=== PATIENT | female | born 1980 | race Caucasian/White ===

== ENCOUNTER 2025-05-13 12:02 | Emergency (ER) | payer SELFPAY ==
--- OUTSIDE RECORDS SUMMARY | 2025-05-13 12:05 | XMS_ITS | Clinical Summary ---
Author Organization [facility] Address [address] [place] [address] Care Team Providers Care Farm Machinery Mechanic Name Role Phone Hollie More MD Unavailable Soy Regalado MD Primary Care Provider [phone] Allergies Active Allergy Reactions Criticality Noted Date Comments Penicillins Shortness Of Breath,Rash,Hives High 11/01 Medications oxyCODONE-aceta minophen (PERCOCET) 5-325 MG per tabletIndicatio ns:Adenomyosis Take 1-2 tablets by mouth every 4 hours as needed for pain (moderate to severe) 36 tablet 0 12/25/2015 Active oxyCODONE (ROXICODONE) 5 MG tablet Take 1 tablet (5 mg) by mouth every 6 hours as needed for pain 6 tablet 05/15/2019 Active Active Problems Problem Noted Date Diagnosed Date Adenomyosis 12/25/2015 Family History Medical History Relation Comments Hypertension Father Heart Disease Maternal Grandfather Heart Disease Maternal Grandmother Osteoporosis Maternal Grandmother Breast Cancer Mother Hyperlipidemia Mother Ovarian Cancer Mother Heart Disease Paternal Grandfather Colon Cancer Paternal Grandmother Relation Status Comments Father Maternal Grandfather Maternal Grandmother Mother Paternal Grandfather Paternal Grandmother Social History Tobacco Use Types Packs/Day Years Used Date Smoking Tobacco: Some Days Cigarettes 0.5 10 Smokeless Tobacco: Never Comments:.5 PPD IN THE PAST, NOW OCCAS SMOKER Alcohol Use Standard Drinks/Week Comments No 0 (1 standard drink = 0.6 oz pur e alcohol) Adolescent Education Answer Date Record ed Getting School Help Needed Not on file 04/20 Comments No Sex and Gender Information Value Date Recorded Sex Assigned at Not on file Legal Sex Female 5:11 AM ALARM MECHANISM ADJUSTER Gender Identity Not on file Sexual Orientation Not on file Last Filed Vital Signs Vital Sign Reading Time Taken Comments Blood Pressure 129/95 11/22/2022 5:40 PM CDT Pulse 87 11/22/2022 5:40 PM CDT Temperature 36.7 C (98 F) 11/22/2022 5:40 PM CDT Respiratory Rate 18 11/22/2022 5:40 PM CDT Oxygen Saturation 97% 11/22/2022 5:40 PM CDT Inhaled Oxygen Concentration - - Weight 71.2 kg (157 lb) 11/22/2022 5:40 PM CDT Height 170.2 cm (5' 7) 12/25/2015 8:37 AM CDT Body Mass Index 24.59 12/25/2015 8:37 AM CDT Plan of Treatment Health Maintenance Due Date Last Done Comments ADVANCE CARE PLANNING 1981 ANNUAL REVIEW OF HM ORDERS 1981 MAMMO SCREENING 1981 YEARLY PREVENTIVE VISIT 1984 HIV SCREENING 1996 HEPATITIS C SCREENING 1999 HEPATITIS B VACCINE (1 of 3 - 19+ 3-dose series) 2000 PNEUMOCOCCAL VACCINE: PEDIATRICS (0 to 5 YEARS) AND AT-RISK PATIENTS (6 to 49 YEARS) (1 of 2 - PCV) 2000 ZOSTER VACCINE (1 of 2) 2000 DTAP/TDAP/TD VACCINE (1 - Tdap) 2006 PAP 07/04/2015 07/04/2012 COVID-19 VACCINE (3 - Pfizer risk series) 12/06/2020 11/08/2020, 10/18/2020 LIPID 2021 PHQ-2 (once per calendar year) 2024 INFLUENZA VACCINE (#1) 2025 DIABETES SCREENING 11/22/2025 11/22/2022, 0 08/29/2021, 12/26/2015, Additional history exists HPV VACCINE (No Doses Required) Completed MENINGITIS VACCINE Aged Out No longer eligible based on patient's age to complete this topic Procedures Procedure Name Priority Date/Time Associated Diagnosis Comments COMPREHENSIVE METABOLIC PANEL STAT 11/22/2022 6:08 PM CDT ABSTRACT PAP (HIM EXTERNAL RESULT) Routine 07/04/2012 from Last 3 Months or Most Recently Relevant to Health Maintenance Results * (ABNORMAL) Comprehensive metabolic panel (11/22/2022 6:08 PM CDT) Sodium 136 136 - 145 mmol/L 11/22/2022 9:58 PM CDT [facility] Potassium 4.3 3.4 - 5.3 mmol/L 11/22/2022 9:58 PM CDT [facility] Chloride 105 98 - 107 mmol/L 11/22/2022 9:58 PM CDT [facility] Carbon Dioxide (CO2) 21(L) 22 - 29 mmol/L 11/22/2022 9:58 PM CDT [facility] Anion Gap 10 7 - 15 mmol/L 11/22/2022 9:58 PM CDT [facility] Urea Nitrogen 9.7 6.0 - 20.0 mg/dL 11/22/2022 9:58 PM CDT [facility] Creatinine 0.68 0.51 - 0.95 mg/dL 11/22/2022 9:58 PM CDT [facility] Calcium 9.1 8.6 - 10.0 mg/dL 11/22/2022 9:58 PM CDT [facility] Glucose 82 70 - 99 mg/dL 11/22/2022 9:58 PM CDT [facility] Alkaline Phosphatase 62 35 - 104 U/L 11/22/2022 9:58 PM CDT [facility] AST 20 10 - 35 U/L 11/22/2022 9:58 PM CDT [facility] Comment:Specimen is hemolyze d which can falsely elevate AST. Analysis of a non-hemolyzed specimen may result in a lower value. ALT 7(L) 10 - 35 U/L 11/22/2022 9:58 PM CDT [facility] Protein Total 6.6 6.4 - 8.3 g/dL 11/22/2022 9:58 PM CDT [facility] Albumin 4.2 3.5 - 5.2 g/dL 11/22/2022 9:58 PM CDT [facility] Bilirubin Total 0.3 <=1.2 mg/dL 11/22/2022 9:58 PM CDT [facility] GFR Estimate >90 >60 mL/min/1.7 3m2 11/22/2022 9:58 PM CDT [facility] Comment:eGFR calculated 2020 CKD-EPI equation. Blood STRUCTURE OF LEFT UPPER LIMB / Unknown Venipuncture / Unknown 11/22/2022 6:08 PM CDT 11/22/2022 6:21 PM CDT Hayden Flores MD LAB - BLOOD ORDERABLES F inal Result [facility] [address] [facility] (1st floor, no room number) [place] [address], [facility] [phone] * ABSTRACT PAP-NO CHARGE (07/04/2012) 07/04/2012 Narrative EXTERNAL LAB - 07/04/2012 Pap smear done on this date: 2012 (approximately), by this group: [facility] [place], results were Normal. Patient Reported LAB - HIM EXTERNAL RESULT Final Result EXTERNAL LAB External Lab from Last 3 Months or Most Recently Relevant to Health Maintenance Insurance [employer] [facility] COMMERCIAL Advance Directives For more information, please contact: [phone] * Full Code (Latest Code Status on File) Date Activated Date Inactivated Comments 12/25/2015 2:13 PM 12/26/2015 10:30 AM Care Teams Farm Machinery Mechanic Relationship Specialty Start Date End Date Soy Regalado MD [facility] [address] [place] [address] PCP - General executive marketing assistant 12/24/15 Hollie More MD [facility] [address] [place] [address] executive marketing assistant 07/17/14
--- OUTSIDE RECORDS SUMMARY | 2025-05-13 12:05 | XMS_ITS | Encounter Summary ---
Author Organization [place] Address [address] [place] [address] Care Team Providers Care Dedicated Regional Driver Name Role Phone Hollie More MD Unavailable Soy Regalado MD Primary Care Provider [phone] Encounter Details Date Type Department Care Team (Late st Contact Info) Description 01/01/2016 MyC Medical Advice [facility] [employer] ENGINEERING TEACHER [address] [place] [address] [place] [address] [place] [address] Social History Tobacco Use Types Packs/Day Years Used Date Smoking Tobacco: Some Days Cigarettes 0.5 10 Smokeless Tobacco: Never Comments:.5 PPD IN THE PAST, NOW OCCAS SMOKER Alcohol Use Standard Drinks/Week Comments No 0 (1 standard drink = 0.6 oz pur e alcohol) Comments No Sex and Gender Information Value Date Recorded Sex Assigned at Not on file Legal Sex Female 5:11 AM PAINT SPECIALIST Gender Identity Not on file Sexual Orientation Not on file documented as of this encounter Plan of Treatment Not on file documented as of this encounter Visit Diagnoses Not on filedocumented in this encounter Care Teams Dedicated Regional Driver Relationship Specialty Start Date End Date Soy Regalado MD [facility] [address] [place] [address] PCP - General waiter/waitress head 12/24/15 Hollie More MD [facility] [address] [facility] [address] [place], [place] [address] waiter/waitress head 07/17/14 documented as of this encounter
--- OUTSIDE RECORDS SUMMARY | 2025-05-13 12:05 | XMS_ITS | Encounter Summary ---
Author Organization [facility] Address [address] [place] [address] Care Team Providers Care Pigment Making Supervisor Name Role Phone Hollie More MD Unavailable Soy Regalado MD Primary Care Provider [phone] Encounter Details Date Type Department Care Team (Late st Contact Info) Description 11/22/2022 MyC Medical Advice [facility] [address] [place] [phone] Kellie Isaacs RN Social History Tobacco Use Types Packs/Day Years Used Date Smoking Tobacco: Some Days Cigarettes 0.5 10 Smokeless Tobacco: Never Comments:.5 PPD IN THE PAST, NOW OCCAS SMOKER Alcohol Use Standard Drinks/Week Comments No 0 (1 standard drink = 0.6 oz pur e alcohol) Comments No Sex and Gender Information Value Date Recorded Sex Assigned at Not on file Legal Sex Female 5:11 AM STAFF CONSULTANT Gender Identity Not on file Sexual Orientation Not on file COVID-19 Exposure Response Date Recorded In the last 10 days, have yo u been in contact with someone who was confirmed or suspected to have Coronavirus/COVID-19? No / Unsure 11/22/2022 5:32 PM CDT documented as of this encounter Plan of Treatment Not on file documented as of this encounter Visit Diagnoses Not on filedocumented in this encounter Care Teams Pigment Making Supervisor Relationship Specialty Start Date End Date Soy Regalado MD [facility] [address] [facility] [address] [place], [place] [id number] PCP - General maintenance services dispatcher 12/24/15 Hollie More MD [facility] [address] [facility] [address] [place] [address] maintenance services dispatcher 07/17/14 documented as of this encounter
--- OUTSIDE RECORDS SUMMARY | 2025-05-13 12:05 | XMS_ITS | Clinical Summary ---
Author Organization [facility] Address [address] [place] [address] Care Team Providers Care Medical Records Analyst Name Role Phone Unassigned, Provider Primary Care Provider Unava ilable Source Comments You are receiving this document as you are listed as the primary care provider,follow-up provider, or the patient has been referred to you for consultation.This is in compliance with the Medicare and[facility] Cent[facility]aid EHR Incentive Program,which states Providers who transition their patient to another setting of careor provider of care or refers their patient to another provider of care shouldprovide summary care record for each transition of care or referral. [facility] Allergies Active Allergy Reactions Criticality Noted Date Comments Penicillins Hives 08/26/2004 Penicillins Anaphylaxis High 02/19/2025 Medications DOXYCYCLINE HYCLATE (VIBRA-TABS) 100MG ORAL TABS take 1 by mouth 2 times daily until gone 14 0 5 Active Additional Information Patient not taking.Reported on 09/03/2024 METHERGINE 0.2MG ORAL TABS take 1 by mouth 3 times daily until gone 9 0 5 Active Additional Information Patient not taking.Reported on 09/03/2024 Encounters Date Type Department Care Team Description 02/19/2025 10:30 AM CDT Ancillary Procedure Radiology at [address] [phone] Rebecca Glasgow APRN, SYSTEMS ARCHITECT [place], initial encounter 02/19/2025 10:25 AM CDT Ancillary Procedure Radiology at [address] [place] [address] Rebecca Glasgow APRN, CNP Fall, initial encounter 02/19/2025 10:20 AM CDT Ancillary Procedure Radiology at [facility] [address] [place] [phone] Rebecca Glasgow APRN, CNP Fall, initial encounter 02/19/2025 10:00 AM CDT Office Visit [facility] [place] [address] [place] [phone] Rebecca Glasgow APRN, CNP Fall, initial encounter (Primary Dx) from Last 3 Months Immunizations Immunization Administration Dates Next Due Pfizer Duc 12+ Purple Top 11/08/2020,10/02 Social History Tobacco Use Types Packs/Day Years Used Date Smoking Tobacco: Some Days Cigarettes 0.5 7 Smokeless Tobacco: Never Tobacco Cessation:Ready to Q uit: Not Asked; Counseling Given: Not Answered Alcohol Use Standard Drinks/Week Comments No 0 (1 standard drink = 0.6 oz pur e alcohol) Comments No Sex and Gender Information Value Date Recorded Sex Assigned at Not on file Legal Sex Female 5:31 AM CDT Gender Identity Not on file Sexual Orientation Not on file Last Filed Vital Signs Vital Sign Reading Time Taken Comments Blood Pressure 114/83 02/19/2025 10:04 AM CDT Pulse 87 02/19/2025 10:04 AM CDT Temperature 36.5 C (97.7 F) 02/19/2025 10:04 AM CDT Respiratory Rate 18 02/19/2025 10:04 AM CDT Oxygen Saturation 98% 02/19/2025 10:04 AM CDT Inhaled Oxygen Concentration - - Weight 71.7 kg (158 lb) 08/26/2004 7:00 AM SANDING MACHINE OPERATOR OR TENDER Height 174 cm (5' 8.5) 08/26/2004 7:00 AM SANDING MACHINE OPERATOR OR TENDER Body Mass Index 23.67 08/26/2004 7:00 AM SANDING MACHINE OPERATOR OR TENDER Plan of Treatment Health Maintenance Due Date Last Done Comments Cervical Cancer Screening Due 1981 Hep C Screening (Preventive Services) 1981 Mammogram 1981 HIV Screening (Preventive Services) 1997 Adult Preventive Visit 1999 DTaP/Tdap/Td Vaccine (1 - Tdap) 2000 HepB Vaccine (1) 2000 Pneumococcal Vaccine (1 of 2 - PCV) 2000 HPV Vaccine (1 - 3-dose SCDM series) 2008 COVID-19 Vaccine (3 - 2024-2 6 season) 2025 11/08/2020, 10/18/2020 Influenza Vaccine (#1) 2025 Zoster/Shingles Vaccine (1 o f 2) 2031 HepA Vaccine Aged Out No longer eligi ble based on patient's age to complete this topic Hib Vaccine Aged Out No longer eligi ble based on patient's age to complete this topic IPV (Polio) Vaccine Aged Out No longe r eligible based on patient's age to complete this topic MCV4 Vaccine Aged Out No longer eligi ble based on patient's age to complete this topic Meningococcal B Vaccine Aged Out No l onger eligible based on patient's age to complete this topic Procedures Procedure Name Priority Date/Time Associated Diagnosis Comments XR WRIST LT 3 VIEWS STAT 02/19/2025 1 0:33 AM CDT Fall, initial encounter XR KNEE LT 2 VIEWS STAT 02/19/2025 10 :33 AM CDT Fall, initial encounter XR FOREARM LT 2 VIEWS STAT 02/19/2025 10:33 AM CDT Fall, initial encounter from Last 3 Months Results * XR Wrist Lt 3 Views (02/19/2025 10:33 AM CDT) Anatomical Region Laterality Modality Upper Extremity, Wrist Digital R adiography 02/19/2025 10:3 3 AM CDT Narrative 02/19/2025 10:48 AM CDT EXAM: XR WRIST LT 3 VIEWS LOCATION: [facility] DATE: 02/19/2025 INDICATION: Fall with left wrist pain. COMPARISON: None. IMPRESSION: Bones are normally aligned. No fractures are visualized. Procedure Note Flor Hedrick MD - 02/19/2025 EXAM: XR WRIST LT 3 VIEWS LOCATION: [facility] DATE: 02/19/2025 INDICATION: Fall with left wrist pain. COMPARISON: None. IMPRESSION: Bones are normally aligned. No fractures are visualized. Rebecca Glasgow APRN, SYSTEMS ARCHITECT RAD GD Final Result * XR Knee Lt 2 Views (02/19/2025 10:33 AM CDT) Anatomical Region Laterality Modality Lower Extremity, Knee Digital Ra diography 02/19/2025 10:3 3 AM CDT Narrative 02/19/2025 10:48 AM CDT EXAM: XR KNEE LT 2 VIEWS LOCATION: [facility] DATE: 02/19/2025 INDICATION: Fall with left knee pain. COMPARISON: None. IMPRESSION: Bones are normally aligned. No fracture. No joint effusion. Procedure Note Flor Hedrick MD - 02/19/2025 EXAM: XR KNEE LT 2 VIEWS LOCATION: [facility] DATE: 02/19/2025 INDICATION: Fall with left knee pain. COMPARISON: None. IMPRESSION: Bones are normally aligned. No fracture. No joint effusion. Rebecca Glasgow APRN, SYSTEMS ARCHITECT RAD GD Final Result * XR Forearm Lt 2 Views (02/19/2025 10:33 AM CDT) Anatomical Region Laterality Modality Upper Extremity, Forearm, Arm Di gital Radiography 02/19/2025 10:3 3 AM CDT Narrative 02/19/2025 10:47 AM CDT EXAM: XR FOREARM LT 2 VIEWS LOCATION: [facility] DATE: 02/19/2025 INDICATION: Left forearm pain. COMPARISON: None. IMPRESSION: Radius and ulna are intact. No fractures are visualized. Procedure Note Flor Hedrick MD - 02/19/2025 EXAM: XR FOREARM LT 2 VIEWS LOCATION: [facility] DATE: 02/19/2025 INDICATION: Left forearm pain. COMPARISON: None. IMPRESSION: Radius and ulna are intact. No fractures are visualized. Rebecca Glasgow DISH WASHER, SYSTEMS ARCHITECT RAD GD Final Result from Last 3 Months Insurance [employer] Care Teams Medical Records Analyst Relationship Specialty Start Date End Date Unassigned, Provider [address] [place] [address] PCP - General 09/10/00
--- OUTSIDE RECORDS SUMMARY | 2025-05-13 12:05 | XMS_ITS | Clinical Summary ---
Author Organization [facility] Address [address] [place] [address] Care Team Providers Care Ham Boner Name Role Phone Arturo Adams [facility] Provider Allergies Active Allergy Reactions Criticality Noted Date Comments Penicillins Hives 08/29/2017 Medications albuterol HFA 90 mcg/actuation inhalerIndicatio ns:Bronchitis Inhale 2 Puffs by mouth every 4 hours if needed. 1 Inhaler 08/29/2017 Active Social History Tobacco Use Types Packs/Day Years Used Date Smoking Tobacco: Never Smokeless Tobacco: Never Alcohol Use Standard Drinks/Week Comments No 0 (1 standard drink = 0.6 oz pur e alcohol) Comments Unknown Sex and Gender Information Value Date Recorded Sex Assigned at Not on file Legal Sex Female 6:28 AM SWITCHBOARD OPERATOR Gender Identity Not on file Sexual Orientation Not on file Obstetrics History Last Filed Vital Signs Vital Sign Reading Time Taken Comments Blood Pressure 136/96 09/03/2024 8:29 PM SWITCHBOARD OPERATOR Pulse 83 09/03/2024 8:29 PM SWITCHBOARD OPERATOR Temperature 37.1 C (98.8 F) 09/03/2024 8:29 PM SWITCHBOARD OPERATOR Respiratory Rate 16 09/03/2024 8:29 PM SWITCHBOARD OPERATOR Oxygen Saturation 98% 09/03/2024 8:29 PM SWITCHBOARD OPERATOR Inhaled Oxygen Concentration - - Weight 72.6 kg (160 lb) 08/29/2017 4:27 PM SWITCHBOARD OPERATOR Height 167.6 cm (5' 6) 08/29/2017 4:27 PM SWITCHBOARD OPERATOR Body Mass Index 25.82 08/29/2017 4:27 PM SWITCHBOARD OPERATOR Plan of Treatment Health Maintenance Due Date Last Done Comments Tetanus booster 1992 Depression screening for age 12+ 1993 HIV for age 15-65 1996 BMI (ht and wt on same day) for age 18+ 1999 Hepatitis C screening for ag e 18-79 1999 Hepatitis B series for 19+ ( 1 of 3 - 19+ 3-dose series) 2000 Pap test for age 21-65 09/21/2005 09/21/2002 HPV series for age 9-45 (1 - 3-dose SCDM series) 2008 Influenza Vaccine (#1) 2025 RSV vaccine for adults or (1 - 1-dose 75+ series) 2056 Pneumococcal series for age 6-49 Aged Out No longer eligible based on patient's age to complete this topic Procedures Procedure Name Priority Date/Time Associated Diagnosis Comments HPV HIGH RISK Routine 09/21/2002 8:15 AM SWITCHBOARD OPERATOR from Last 3 Months or Most Recently Relevant to Health Maintenance Results * HPV THIN PREP (09/21/2002 8:15 AM SWITCHBOARD OPERATOR) HPV RESULTS Normal 09/21/2002 8:15 AM SWITCHBOARD OPERATOR Narrative 12/13/2003 10:42 PM CDT Ordered by an unspecified provider. us Other Clinical Staff MICROBIOLOGY Final Resul t from Last 3 Months or Most Recently Relevant to Health Maintenance Insurance [employer] Care Teams Ham Boner Relationship Specialty Start Date End Date Arturo Adams [place] [address] [place] [address] PCP - General 08/29/17
--- OUTSIDE RECORDS SUMMARY | 2025-05-13 12:05 | XMS_ITS | Encounter Summary ---
Author Organization [facility] Address [address] [place] [address]. [place] [address] Care Team Providers Care Cellars Supervisor Name Role Phone Hollie More MD Primary Care Provider [phone] Hollie More MD Unavailable Soy Regalado MD Primary Care Provider [phone] Encounter Details Date Type Department Care Team (Late st Contact Info) Description 12/15/2015 MyC Medical Advice [facility] CHARR[facility] [address] [place] [address] [place] [address] [place] [address] Social History Tobacco Use Types Packs/Day Years Used Date Smoking Tobacco: Never Smokeless Tobacco: Never Alcohol Use Standard Drinks/Week Comments No 0 (1 standard drink = 0.6 oz pur e alcohol) Comments No Sex and Gender Information Value Date Recorded Sex Assigned at Not on file Legal Sex Female 5:11 AM WEB CONSULTANT Gender Identity Not on file Sexual Orientation Not on file documented as of this encounter Plan of Treatment Not on file documented as of this encounter Visit Diagnoses Not on filedocumented in this encounter Care Teams Cellars Supervisor Relationship Specialty Start Date End Date Hollie More MD [facility] [address] [place] [id number] PCP - General research consultant 1/14/15 6/21/16 Soy Regalado MD [facility] [address] [place] [id number] PCP - General research consultant 12/24/15 Hollie More MD [facility] [address] [place] [address] research consultant 07/17/14 documented as of this encounter
[2025-05-13 12:16] VITALS: BP 144/100; PULSE 74; RESP 20; TEMP 37.2; O2SAT 99; BMI 25.1
--- NOTE | 2025-05-13 13:46 | ED.GENADULT ---
HPI - General Adult General Date Seen: 05/13/25 Chief complaint: Flank Pain Stated complaint: side pain/vomiting blood Time Seen by Provider: 05/13/25 13:46 Source: patient, RN notes reviewed and old records reviewed Mode of arrival: ambulatory Limitations: no limitations History of Present Illness HPI narrative: Seth is a very pleasant 44-year-old female previously healthy with history of hysterectomy with left ovary remaining who comes to the emergency room for evaluation regarding right lower quadrant pain. Seth notes the onset of abdominal discomfort around her umbilicus just superior. Over the last 48+ hours the pain has now gone into her right lower quadrant. She does note pain when riding in the car in hitting any bumps. She notes that it hurts to walk. She did have 1 episode of vomiting this morning and she thought that there was some blood in it. No blood in stool or diarrhea. Does not take excessive amounts of ibuprofen or Aleve. Really has been quite healthy with no drug alcohol or tobacco use. Movement increases her discomfort. She is preferring to keep her knees to her chest. Does have a history of kidney stones but states that this pain is not like that and she has no painful urination. No recent history of trauma. No problems with anesthesia. Does prefer to avoid narcotics as she states both of her parents had addiction challenges. Related Data Home Medications ?Medication ?Instructions ?Recorded ?Confirmed No Known Home Medications 05/13/25 05/13/25 Allergies Allergy/AdvReac Type Severity Reaction Status Date / Time Penicillins Allergy Severe rash/difficulty Verified 05/13/25 12:16 breathing Review of Systems Status of ROS: Reports: 10 or more systems reviewed and unremarkable except as noted in History and below Const: Reports: chills and fatigue; Denies: fever Eyes: Denies: change in vision ENMT: Denies: throat pain, neck pain or nasal congestion Cardio: Reports: lightheadedness; Denies: chest pain, swelling of feet/ankles or shortness of breath with exertion Resp: Denies: shortness of breath or cough GI: Reports: abdominal pain, nausea, vomiting and coffee grounds in vomit; Denies: diarrhea or blood in stool : Denies: painful urination, urinary frequency or urinary urgency Musculo: Denies: neck pain Integ/Breast: Denies: rash or itching Neuro: Denies: headache Endo: Reports: fatigue Exam Narrative: Exam Narrative: Alert and oriented. Fatigued in appearance. External ears eyes nose clear. Moist mucous membranes. Dentition intact. Heart with a regular rate and rhythm and lungs clear. Abdomen shows pain with palpation in the lower abdomen especially right lower quadrant. Positive rebound tenderness. Positive pain when tapping on the bottom of the heel or with movement of the bed. No masses are palpated. Moving all extremities. Const: Vital Signs, click to edit/add: Vital Signs - 24 hr 05/13/25 12:16 05/13/25 14:38 Temperature 98.9 F Pulse Rate [Pulse Oximeter] 74 68 Respiratory Rate 20 16 Blood Pressure [Ri ght Upper Arm] 144/100 H 138/83 Pulse Oximetry 99 98 Oxygen Delivery Me thod Room Air Room Air Documenting provider has reviewed patient's vital signs: yes Course Course ED Course: Differential diagnosis includes but is not limited to acute appendicitis, colitis, small-bowel obstruction, diverticulitis, ureteral colic with kidney stone. Will place IV give Toradol 15 mg, Zofran 4 mg as well as 1 L of saline. Given the fact that she did have some blood in her vomit it of course raises concern for a coexisting gastritis or GI bleed. However there is only 1 episode and she is adamant about avoiding any narcotics. I do think she needs some sort of pain control. Give Protonix as well. Plan on abdominal CT with IV contrast, CBC, comprehensive, CRP, lactate as well. Will also check urinalysis. Reevaluation(s) Reevaluation #1: White count normal 7.06 with a normal hemoglobin of 13.3. Urinalysis without evidence of hematuria. Reevaluation #2: CT without evidence of appendicitis. Notable is a cyst on the right ovary with possible hydrosal Ultrasound ordered as torsion is now in the differential. Consultations Consultation #1: Haul Driver Dr. Chirinos, OB-STAFF RADIATION THERAPIST re: right ovarian cyst without evidence of torsion, good blood flow and a follow up US that shows no surrounding fluid as initially suspected on CT. Pain seems to be out of proportion to findings. Likely not from ovarian source. Consultation #2: Dr. Villa, surgical resident was asked to look at the CT for second opinion about possible appendicitis. No appy noted. Close follow up suggested. Vital Signs Vital signs: Initial Vital Signs Temperature 98.9 F 05/13/25 12:16 Temperature Source Temporal Artery Scan 05/13/25 12:16 Pulse Rate 74 05/13/25 12:16 Respiratory Rate 20 05/13/25 12:16 Blood Pressure 144/100 H 05/13/25 12:16 Blood Pressure Mean 114 H 05/13/25 12:16 Pulse Oximetry 99 05/13/25 12:16 Oxygen Delivery Method Room Air 05/13/25 12:16 Vital Signs Temperature 98.9 F 05/13/25 12:16 Pulse Rate 74 05/13/25 12:16 Respiratory Rate 20 05/13/25 12:16 Blood Pressure 144/100 H 05/13/25 12:16 Pulse Oximetry 99 05/13/25 12:16 Oxygen Delivery Method Room Air 05/13/25 12:16 Temperature 98.9 F 05/13/25 12:16 Pulse Rate 68 05/13/25 14:38 Respiratory Rate 16 05/13/25 14:38 Blood Pressure 138/83 05/13/25 14:38 Pulse Oximetry 98 05/13/25 14:38 Oxygen Delivery Method Room Air 05/13/25 14:38 Medications Administered Medications: Discontinued Medications Generic Name Dose Route Start Last Admin Trade Name Freq PRN Reason Stop Dose Admin Sodium Chloride 1,000 mls @ 1,000 mls/hr 05/13/25 14:03 05/13/25 15:26 0.9 % Sodium Chloride 1000 Ml IV 05/13/25 15:02 Infused .Q1H KAREEM Infusion Ketorolac Tromethamine 15 mg 05/13/25 14:03 05/13/25 14:36 Ketorolac 15 Mg/Ml Inj IVP 05/13/25 14:04 15 mg ONCE ONE Administration Omeprazole 40 mg 05/13/25 17:57 05/13/25 18:12 Omeprazole [address] PO 05/13/25 17:58 40 mg ONCE ONE Administration Ondansetron HCl 4 mg 05/13/25 14:03 05/13/25 14:36 Ondansetron 2 Mg/Ml Inj IVP 05/13/25 14:04 4 mg ONCE ONE Administration Medical Decision Making MDM Narrative Medical decision making narrative: 1. Right lower quadrant pain - No evidence of appendicitis on CT. Ovarian cyst not noted to have surrounding fluid or worrisome findings on follow US. Spoke with both OB-STAFF RADIATION THERAPIST and Surgery as pain seems to be out of proportion to findings. At this time, patient will be discharged home. Follow up with primary md and return to the ED for worsening symptoms especially fever, vomiting and increasing pain. There does appear to be increased stool burden. Will have Seth use miralax twice daily until stools are soft to see if this makes a difference. 2. Blood in vomit - Hgb normal and no evidence of gastritis, ulcer on CT. Patient given omeprazole 40mg. I would have her continue this for 7 days 20mg daily. Follow up with primary md for recheck. Seek medical attention for recurrence, lightheadedness or ongoing bleeding. No vomiting in the ED. 3. Disposition - Home at this time. Return for worsening symptoms and as needed. Medical Records Medical records reviewed: Yes I reviewed the patient's medical records Medical records narrative: Reviewed a note in the medical record from 2022 complete physical. Lab Data Lab results reviewed: Yes I reviewed the patient's lab results Labs: Lab Results 05/13/25 05/13/25 Range/Units 13:40 14:10 WBC 7.06 (4.50-11.00) K/uL RBC 4.39 (4.00-5.20) m/uL Hgb 13.3 (12.0-16.0) gm/dL Hct 40.7 (33.0-51.0) % MCV 93 (80-100) fL MCH 30 (26-34) pg MCHC 33 (32-36) gm/dL RDW Coeff of Sherin 12.5 (11.5-15.5) % Plt Count 193 (140-440) K/uL Neut % (Auto) 70.2 (42.0-72.0) % Lymph % (Auto) 22.0 (20-44) % Dickenson % (Auto) 6.8 (0.0-11.0) % Eos % (Auto) 0.4 (0.0-7.0) % Baso % (Auto) 0.3 (0.0-3.0) % Neut # (Auto) 4.96 (1.7-7.0) K/uL Lymph # (Auto) 1.55 (0.90-2.90) K/uL Dickenson # (Auto) 0.50 (0.00-0.90) K/UL Eos # (Auto) 0.03 (0.00-0.50) K/uL Baso # (Auto) 0.02 (0.00-0.30) K/uL Abs Immat Gran (auto) 0.02 (0.00-0.30) K/uL Imm/Tot Granulo (auto) 0.3 % Sodium 135 (135-149) mmol/L Potassium 4.2 (3.6-5.1) mmol/L Chloride 103 (96-114) mmol/L Carbon Dioxide 25 (20-32) mmol/L Anion Gap 7 (7-15) mEq/L BUN 8 (5-24) mg/dL Creatinine 0.6 (0.5-1.5) mg/dL Estimated Creat Clear 121.96 Estimated GFR 114 ml/min Glucose 93 (60-115) mg/dL Lactate 0.6 (0.5-1.9) mmol/L Calcium 8.8 (8.4-10.6) mg/dL Total Bilirubin 0.5 (0.1-1.5) mg/dL AST 21 (12-35) U/L ALT 11 (4-35) U/L Alkaline Phosphatase 50 (40-150) U/L C-Reactive Protein < 0.5 L (0.5-1.0) mg/dL Total Protein 6.7 (6.0-8.3) g/dL Albumin 4.2 (3.3-5.0) g/dL Urine Color Yellow (Yellow) Urine Appearance Clear (Clear) Urine pH 5.0 (5.0-8.5) Ur Specific [place] <= 1.005 (1.000-1.030) Urine Protein Negative (Negative) Urine Glucose (UA) Negative (Negative) Urine Ketones Negative (Negative) Urine Blood Negative (Negative) Urine Nitrite Negative (Negative) Urine Bilirubin Negative (Negative) Urine Urobilinogen 0.2 (0.2-1.0) Ur Leukocyte Esterase Negative (Negative) Urine RBC 0-2 (0-2) Urine WBC 0-2 (0-5) Ur Squamous Epith Cells Few (None-Few) Urine Bacteria Few A (None) Imaging Data CT scan - abdomen: Attestation: I have reviewed the pertinent imaging results. My impression: I do not note appendicitis Radiologist's impression: The lung bases are clear. The liver is unremarkable. A 2.8 centimeter hypoattenuating mass is seen within the inferior right samm liver with peripheral discontinuous enhancement. This likely represents a benign hemangioma. The gallbladder is partially distended. No biliary ductal dilatation. Spleen is normal in size. The pancreas is without stranding or main ductal dilatation. The adrenal glands are unremarkable. The kidneys are without hydronephrosis or significant perinephric stranding. Symmetric renal enhancement is noted. The urinary bladder is distended without essential Herring stranding. There is stool throughout the colon which appears nondilated. The appendix appears to be nondilated. The small bowel is nondilated without evidence of a small-bowel obstruction. The stomach is partially distended. There is narrowing of the gastric outlet which is likely physiologic. The uterus is absent. There is evidence of a 2 centimeter right ovarian cyst with small amount of surrounding fluid (series 2, image 121). There may be smaller cysts or dilated fallopian tube adjacent (113). No organized drainable fluid collection. No free air. No lymphadenopathy is seen. Aorta is not aneurysmal. Bone windows demonstrate no suspicious lytic or sclerotic lesion. No fracture. IMPRESSION: 1. Hysterectomy. Evidence of small right ovarian cyst with possible mild hydrosalpinx. Follow-up pelvic ultrasound is recommended for evaluation. Please note that all CT scans at this facility use dose modulation, iterative reconstruction, and/or weight-based dosing when appropriate to reduce radiation dose to as low as reasonably achievable. US - abdomen: Attestation: I have reviewed the pertinent imaging results. Radiologist's impression: Uterus: Surgically absent. Right ovary: Size: 4.3 x 1.8 x 2.6 cm. Mass: No. Dominant follicle measures 2.0 x 1.7 x 1.7 centimeters. Adjacent cyst measures 1.8 x 1.2 x 1.5 centimeters. Blood flow: Normal arterial and venous blood flow. Left ovary: Surgically absent. Cul-de-sac and adnexa: Significant free Fluid: No. Mass: No. Impression: 1. Small right paraovarian cyst measures up to 1.8 centimeters in size. 2. Dominant follicle within the right ovary measures up to 2 centimeters in size. Discharge Plan Discharge Clinical Impression: Right lower quadrant abdominal pain, Ovarian cyst, Vomiting of blood Patient Disposition: Home, Self-Care Condition: Improved Additional Instructions: For abd pain: Follow up with your regular MD. No evidence of appendicitis on CT. TYlenol as needed for discomfort. Would recommend some stool softener Miralax 1 dose every 12 hours until stools are loose. For ovarian cyst: Cyst is 1.8 cm. Follow up with [facility] for ongoing pain. For blood in vomit: You were given omeprazole to limit acid production in your stomach. I would advise you to continue this over the counter, once daily for 7 days. Follow up with primary md for recheck. Thye may wish to do an endoscopy. Seek medical attention for recurrence, lightheadedness or ongoing bleeding. Return to the ED for worsening symptoms Prescriptions: No Action No Known Home Medications Follow Up/Referrals: Provider,Not a Local [Primary Care Provider, Family Practice] Stand Alone Forms: [employer] Info Instructions
[2025-05-13 13:58] LABS: Appearance Urine Clear (Clear)
--- NOTE | 2025-05-13 14:03 | CRLHL7_ITS ---
For Patients: As a result of the Century Cures Act, medical imaging exams and procedure reports are released immediately into your electronic medical record. You may view this report before your referring provider. If you have questions, please contact your health care provider. INDICATION: Right lower quadrant pain. TECHNIQUE: CT abdomen and pelvis acquired with 81 cc Omnipaque 350 IV contrast. COMPARISON: None. FINDINGS: The lung bases are clear. The liver is unremarkable. A 2.8 centimeter hypoattenuating mass is seen within the inferior right samm liver with peripheral discontinuous enhancement. This likely represents a benign hemangioma. The gallbladder is partially distended. No biliary ductal dilatation. Spleen is normal in size. The pancreas is without stranding or main ductal dilatation. The adrenal glands are unremarkable. The kidneys are without hydronephrosis or significant perinephric stranding. Symmetric renal enhancement is noted. The urinary bladder is distended without essential Herring stranding. There is stool throughout the colon which appears nondilated. The appendix appears to be nondilated. The small bowel is nondilated without evidence of a small-bowel obstruction. The stomach is partially distended. There is narrowing of the gastric outlet which is likely physiologic. The uterus is absent. There is evidence of a 2 centimeter right ovarian cyst with small amount of surrounding fluid (series 2, image 121). There may be smaller cysts or dilated fallopian tube adjacent (113). No organized drainable fluid collection. No free air. No lymphadenopathy is seen. Aorta is not aneurysmal. Bone windows demonstrate no suspicious lytic or sclerotic lesion. No fracture. IMPRESSION: 1. Hysterectomy. Evidence of small right ovarian cyst with possible mild hydrosalpinx. Follow-up pelvic ultrasound is recommended for evaluation. Please note that all CT scans at this facility use dose modulation, iterative reconstruction, and/or weight-based dosing when appropriate to reduce radiation dose to as low as reasonably achievable. Dictated by Waldo Vital MD @ 05/13/2025 2:48:20 PM (Electronically Signed)
[2025-05-13 14:17] LABS: Lactate* 0.6 mmol/L (0.5-1.9)
[2025-05-13 14:18] LABS: Hematocrit* 40.7 % (33.0-51.0); Hemoglobin* 13.3 gm/dL (12.0-16.0); Immature Granulocytes Abs Auto 0.02 K/uL (0.00-0.30); Immature Granulocytes Pct Auto 0.3 %; Lymphocytes Absolute Auto 1.55 K/uL (0.90-2.90); Mean Corpuscular HGB Conc 33 gm/dL (32-36); Mean Corpuscular Hemoglobin 30 pg (26-34); Mean Corpuscular Volume 93 fL (80-100); RDW Coefficient of Variation % 12.5 % (11.5-15.5); Red Blood Count* 4.39 m/uL (4.00-5.20); White Blood Count* 7.06 K/uL (4.50-11.00)
[2025-05-13 14:36] LABS: Albumin* 4.2 g/dL (3.3-5.0); Chloride* 103 mmol/L (96-114); Potassium* 4.2 mmol/L (3.6-5.1); Sodium* 135 mmol/L (135-149)
[2025-05-13] MEDS: ONDANSETRON 2 MG/ML inj 4 MG IVP (14:36)
[2025-05-13 14:38] VITALS: BP 138/83; PULSE 68; RESP 16; O2SAT 98
[2025-05-13 14:38] LABS: Alanine Aminotransferase* 11 U/L (4-35); Aspartate Amino Transferase* 21 U/L (12-35); Blood Urea Nitrogen* 8 mg/dL (5-24); Creatinine* 0.6 mg/dL (0.5-1.5); Est. Creatinine Clearance* 121.96; Estimated Glomerular Filt Rate 114 ml/min
[2025-05-13 14:39] LABS: Alkaline Phosphatase* 50 U/L (40-150); Anion Gap 7 mEq/L (7-15); Bilirubin Total* 0.5 mg/dL (0.1-1.5); Carbon Dioxide* 25 mmol/L (20-32); Total Protein* 6.7 g/dL (6.0-8.3)
[2025-05-13 14:40] LABS: Calcium* 8.8 mg/dL (8.4-10.6); Glucose* 93 mg/dL (60-115)
[2025-05-13 15:02] LABS: Slide Review Reflex No
--- NOTE | 2025-05-13 16:33 | CRLHL7_ITS ---
For Patients: As a result of the Cures Act, medical imaging exams and procedure reports are released immediately into your electronic medical record. You may view this report before your referring provider. If you have questions, please contact your health care provider. Indication: Right lower quadrant pain, questionable cyst. History of hysterectomy and left oophorectomy Technique: Ultrasound pelvis transabdominal and transvaginal for better assessment of the endometrium. Real-time sonographic images with spectral and color Doppler imaging of the ovaries were obtained. Comparison: Same day CT abdomen and pelvis with contrast. Findings: Uterus: Surgically absent. Right ovary: Size: 4.3 x 1.8 x 2.6 cm. Mass: No. Dominant follicle measures 2.0 x 1.7 x 1.7 centimeters. Adjacent cyst measures 1.8 x 1.2 x 1.5 centimeters. Blood flow: Normal arterial and venous blood flow. Left ovary: Surgically absent. Cul-de-sac and adnexa: Significant free Fluid: No. Mass: No. Impression: 1. Small right paraovarian cyst measures up to 1.8 centimeters in size. 2. Dominant follicle within the right ovary measures up to 2 centimeters in size. Dictated by Kelsey Be MD @ 05/13/2025 6:06:41 PM (Electronically Signed)
[2025-05-13] MEDS: OMEPRAZOLE 20 MG CAPSULE DR 40 MG PO (18:12)
== END 2025-05-13 18:42 | disposition home or self-care (01) ==
PROVIDERS: Emergency Provider Family Medicine
DX: R10.31 Right lower quadrant pain (principal); N83.201 Unspecified ovarian cyst, right side; K92.0 Hematemesis
CPT/HCPCS: 36415; 74177; 76830; 76856; 80053; 81001; 83605; 85025; 86140; 87086; 93976; 96374; 96375; 99284; 99285; A9270; J1885; J2405; J7030; Q9967